=== PATIENT | male | born 1960 | race Caucasian/White ===

== ENCOUNTER 2019-01-09 07:56 | Day surgery (SDC) | payer MEDICARE, BC, OTHER ==
[~2019-01-09] VITALS: Ht 172.7 cm; Wt 95.6 kg
[~2019-01-09 07:56] MED LIST: ALLO100T PO; CHLO125TA PO; IRBE150T12 PO; KLOR10TA76 PO; LOSA100T50 PO; NS 1,000 ML IV ONE; OMEP-218 PO
[2019-01-09] MEDS ORDERED: PROPOFOL 200 MG/20 ML VIAL As Ordered ONE (08:58)
[2019-01-09] MEDS ORDERED: LIDOCAINE 2% INJ 100 MG/5 ML SDV (FOR ANES.) As Ordered ONE (08:58)
--- NOTE | 2019-01-09 09:22 | ROOR ---
Patient Name: John Paul Irizarry Procedure Date: 01/09/2019 9:13 AM Date of : 1960 Age: 58 Room: [facility] Gender: Male Note Status: Finalized Procedure: Upper GI endoscopy Indications: Heartburn Providers: Aman Ramirez Jr, MD Referring MD: Lis Varela DO Requesting Provider: Medicines: Propofol per Anesthesia Complications: No immediate complications. Procedure: Pre-Anesthesia Assessment: - Prior to the procedure, a History and Physical was performed, and patient medications and allergies were reviewed. The patient is competent. The risks and benefits of the procedure and the sedation options and risks were discussed with the patient. All questions were answered and informed consent was obtained. Patient identification and proposed procedure were verified by the physician and the nurse in the pre-procedure area and in the procedure room. Mental Status Examination: alert and oriented. Airway Examination: normal oropharyngeal airway and neck mobility. Respiratory Examination: clear to auscultation. CV Examination: normal. ASA Grade Assessment: II - A patient with mild systemic disease. After reviewing the risks and benefits, the patient was deemed in satisfactory condition to undergo the procedure. The anesthesia plan was to use moderate sedation / analgesia (conscious sedation). Immediately prior to administration of medications, the patient was re-assessed for adequacy to receive sedatives. The heart rate, respiratory rate, oxygen saturations, blood pressure, adequacy of pulmonary ventilation, and response to care were monitored throughout the procedure. The physical status of the patient was re-assessed after the procedure. The Endoscope was introduced through the mouth, and advanced to the second part of duodenum. The upper GI endoscopy was accomplished without difficulty. The patient tolerated the procedure well. Findings: The upper third of the esophagus, middle third of the esophagus, lower third of the esophagus and gastroesophageal junction were normal. The cardia, gastric fundus, gastric body, greater curvature of the stomach, gastric antrum, prepyloric region of the stomach and pylorus were normal. The duodenal bulb, first portion of the duodenum and second portion of the duodenum were normal. Impression: - Normal upper third of esophagus, middle third of esophagus, lower third of esophagus and gastroesophageal junction. - Normal cardia, gastric fundus, gastric body, greater curvature of the stomach, antrum, prepyloric region of the stomach and pylorus. - Normal duodenal bulb, first portion of the duodenum and second portion of the duodenum. - No specimens collected. Recommendation: - Discharge patient to home (ambulatory). - Return to primary care physician as previously scheduled. Aman Ramirez MD Aman Ramirez Jr, MD 01/09/2019 9:22:41 AM Electronically signed by Aman Ramirez Jr, MD Number of Addenda: 0 Note Initiated On: 01/09/2019 9:13 AM Estimated Blood Loss: Estimated blood loss: none.
--- NOTE | 2019-01-09 09:35 | ROOR ---
Patient Name: John Paul Irizarry Procedure Date: 01/09/2019 9:13 AM Date of : 1960 Age: 58 Room: [facility] Gender: Male Note Status: Finalized Procedure: Colonoscopy Indications: Screening for colorectal malignant neoplasm Providers: Aman Ramirez Jr, MD Referring MD: Lis Varela DO Requesting Provider: Medicines: Propofol per Anesthesia Complications: No immediate complications. Procedure: Pre-Anesthesia Assessment: - Prior to the procedure, a History and Physical was performed, and patient medications and allergies were reviewed. The patient is competent. The risks and benefits of the procedure and the sedation options and risks were discussed with the patient. All questions were answered and informed consent was obtained. Patient identification and proposed procedure were verified by the physician and the nurse in the pre-procedure area and in the procedure room. Mental Status Examination: alert and oriented. Airway Examination: normal oropharyngeal airway and neck mobility. Respiratory Examination: clear to auscultation. CV Examination: normal. ASA Grade Assessment: II - A patient with mild systemic disease. After reviewing the risks and benefits, the patient was deemed in satisfactory condition to undergo the procedure. The anesthesia plan was to use moderate sedation / analgesia (conscious sedation). Immediately prior to administration of medications, the patient was re-assessed for adequacy to receive sedatives. The heart rate, respiratory rate, oxygen saturations, blood pressure, adequacy of pulmonary ventilation, and response to care were monitored throughout the procedure. The physical status of the patient was re-assessed after the procedure. The Colonoscope was introduced through the anus and advanced to the cecum, identified by appendiceal orifice and ileocecal valve. The colonoscopy was performed without difficulty. The patient tolerated the procedure well. The quality of the bowel preparation was adequate. Findings: The recto-sigmoid colon, descending colon, transverse colon, ascending colon, cecum, appendiceal orifice and ileocecal valve appeared normal. A diminutive polyp was found in the rectum. The polyp was hyperplastic. The polyp was removed with a jumbo cold forceps. Resection and retrieval were complete. A few small and large-mouthed diverticula were found in the sigmoid colon. Non-bleeding internal hemorrhoids were found during endoscopy. The hemorrhoids were Grade II (internal hemorrhoids that prolapse but reduce spontaneously) and Grade III (internal hemorrhoids that prolapse but require manual reduction). Impression: - The recto-sigmoid colon, descending colon, transverse colon, ascending colon, cecum, appendiceal orifice and ileocecal valve are normal. - One diminutive polyp in the rectum, removed with a jumbo cold forceps. Resected and retrieved. - Diverticulosis in the sigmoid colon. - Non-bleeding internal hemorrhoids. Recommendation: - Repeat colonoscopy in 5-10 years for surveillance based on pathology results. - Telephone my office for pathology results in 1 week. Aman Ramirez MD Aman Ramirez Jr, MD 01/09/2019 9:35:12 AM Electronically signed by Aman Ramirez Jr, MD Number of Addenda: 0 Note Initiated On: 01/09/2019 9:13 AM Estimated Blood Loss: Estimated blood loss: none.
[2019-01-09 10:20] VITALS: BP 112/72
== END 2019-01-09 10:40 | disposition home or self-care (01) ==
LOC: M OPP 07:56
PROVIDERS: ATTEND Surgery
DX: Z12.11 Encounter for screening for malignant neoplasm of colon (principal); K64.2 Third degree hemorrhoids; K62.1 Rectal polyp; K57.30 Diverticulosis of large intestine without perforation or abscess without bleeding; R12 Heartburn; G47.30 Sleep apnea, unspecified; Z79.899 Other long term (current) drug therapy

== ENCOUNTER 2023-08-30 10:19 | Day surgery (SDC) | payer MEDICARE, BC ==
[~2023-08-30] VITALS: Ht 172.7 cm; Wt 95.3 kg
[~2023-08-30 10:19] MED LIST changes: -IRBE150T12 PO; +IRBE150T27 PO; -KLOR10TA76 PO; +LOSA100T46 PO; -LOSA100T50 PO; -NS 1,000 ML IV ONE; +OMEP-173 PO; -OMEP-218 PO; +POTA-136 PO; +PROBCAP14 PO; +THERTAB52 PO
[2023-08-30] MEDS: NS 1,000 ML IV ONE (11:26)
[2023-08-30] MEDS ORDERED: fentaNYL 100 MCG/2 ML INJECTION As Ordered ONE (11:55)
[2023-08-30] MEDS ORDERED: GLYCOPYRROLATE INJ 0.2 MG/ML 2 ML VIAL As Ordered ONE (12:01)
[2023-08-30] MEDS ORDERED: propofoL 200 MG/20 ML VIAL As Ordered ONE (12:32)
[2023-08-30] MEDS ORDERED: PHENYLephrine 500MCG 5ML (100MCG/ML) SYRINGE As Ordered ONE (12:39)
[2023-08-30 12:58] VITALS: TEMP 98.6
[2023-08-30 13:28] VITALS: BP 118/76; O2SAT 98
== END 2023-08-30 13:35 | disposition home or self-care (01) ==
LOC: M OPP 10:19
PROVIDERS: ATTEND Surgery
DX: K51.40 Inflammatory polyps of colon without complications (principal); K57.30 Diverticulosis of large intestine without perforation or abscess without bleeding; R93.3 Abnormal findings on diagnostic imaging of other parts of digestive tract; Z86.010 Personal history of colon polyps; K29.70 Gastritis, unspecified, without bleeding; I10 Essential (primary) hypertension; G47.30 Sleep apnea, unspecified; Z99.89 Dependence on other enabling machines and devices; Z79.899 Other long term (current) drug therapy
CPT/HCPCS: 43239; 45380; 88305; J2371; J3010

== ENCOUNTER → 2025-02-10 | Outpatient (CLI) | payer MEDICARE, BC | LOC: M SLEEP 20:00 | PROVIDERS: ATTEND Physician Assistant | DX: G47.33 Obstructive sleep apnea (adult) (pediatric) (principal); G47.61 Periodic limb movement disorder ==